=== PATIENT | female | born 1980 | race Caucasian/White ===

== ENCOUNTER 2016-12-28 05:47 | Day surgery (SDC) | payer OTHER ==
[~2016-12-28] VITALS: Ht 167.6 cm; Wt 100.9 kg
[2016-12-28] VITALS (12 sets, daily range): BP systolic 116–144; BP diastolic 64–88; PULSE 75–90; RESP 13–21; O2SAT 94–100
[~2016-12-28 05:47] MED LIST: CYAN500 PO; CYCL10TA9 PO; FERR-83 PO; FLUO20CA25 PO; FOLI1TAB18 PO; HYDR50TA76 PO; LORA2TAB PO; Lactated Ringer's 1,000 ML IV SCH; OMEP20CA11 PO; THIA100T64 PO
[2016-12-28] MEDS ORDERED: Rocuronium 10 mg/mL 5 mL Inj ONE (05:48)
[2016-12-28] MEDS ORDERED: Dexamethasone 4 mg/mL Inj ONE (05:48)
[2016-12-28] MEDS ORDERED: Glycopyrrolate 0.2 MG/ML 1mL Inj ONE (05:48)
[2016-12-28] MEDS ORDERED: Neostigmine 1 mg/mL 10 mL Inj ONE (05:48)
[2016-12-28] MEDS ORDERED: fentaNYL-PF 50 mCg/mL 2 mL Inj ONE (05:48)
[2016-12-28] MEDS ORDERED: Ondansetron 2 mg/mL 2 mL Inj ONE (05:48)
[2016-12-28] MEDS ORDERED: Propofol 10,000 mCg/mL 20 mL Inj ONE (05:48)
[2016-12-28] MEDS: Lactated Ringer's 1,000 ML IV SCH ×2 (06:48→07:27)
--- NOTE | 2016-12-28 07:13 | PCM.HPANE ---
Patient Data Surgeon Admitting Provider: Attending Provider:Donaldo Grady MD Primary Care Physician:Michele Morgan DO Other Provider:Vivi Howeingham Anesthesia Reason for Visit Desires Sterilization Ht/WT & BMI Height (Feet): 5 Height (Inches): 6 Weight (Kilograms): 100.9 Body Mass Index 35.00 Allergies Coded Allergies: No Known Allergies (Unverified , 12/28/16) Past Anesthesia History Anesthesia History: Denies:: Abnormal Airway, Anesthesia Reactions, Difficult Intubation, Fam Anesthesia Reaction, Malignant Hyperthermia Diabetes History Hx Diabetes?: No MRSA MRSA: No Medications Hypertension Medication: No Home Meds Incl Beta Aden: No Reported Medications Cyclobenzaprine 10 Mg [id number] Mg PO TID PRN Spasm 12/25/16 Thiamine Mononitrate (Vitamin B-1)100 Mg [id number] Mg PO DAILY 11/05/16 Omeprazole 20 Mg Capsule.dr20 Mg PO DAILY Ref 0 11/05/16 Lorazepam 2 Mg Tablet2 Mg PO TID PRN For Anxiety Ref 0 11/05/16 Hydroxyzine HCl (HydrOXYzine Hcl)50 Mg Dsezfq20 Mg PO TID PRN For Anxiety Ref 0 11/05/16 Folic Acid 1 Mg Tablet1 Mg PO DAILY 30 Days 11/05/16 Fluoxetine 20 Mg Pupvlxi03 Mg PO DAILY Ref 0 11/05/16 Ferrous Sulfate 325 Mg Prqphx445 Mg PO BID 30 Days Ref 0 11/05/16 Cyanocobalamin (Vitamin B12)500 Mcg Tablet1,000 Mcg PO DAILY 11/05/16 Discontinued Reported Medications [antabuse] No Conflict CheckUnknown Dose PRN For Alcohol Cessation pt states has not taken for a few months 11/05/16 History History of ENT Problems?: Yes HEENT History: Positive for:: Hearing Problem (some hearing loss) Denies:: Abnormal Airway Cataracts Difficult Intubation Dysphagia Glaucoma Sinus Problem TMJ Denture Type: None Teeth Condition: Within Normal Limits Tooth Decay Other HEENT Pertinent History: S/P WISDOM TEETH EXTRACTIONS Hx of Heart Problems?: No Cardiovascular History: Denies:: AICD Abdominal Aortic Aneurism Atrial Fibrillation Heart Murmur Hypertension Irregular Heartbeat Pacemaker Peripheral Vascular Rheumatic Fever Thrombophlebitis Hx of Respiratory Problem?: No Respiratory History: Denies:: Asthma COPD Emphysema Oxygen Administration Pneumonia Tuberculosis Use of C-PAP Machine Use of Inhalers / NEBS Hx Neurologic Problems?: No Neurological History: Denies:: Alzheimer's Disease CVA Dementia Headaches Multiple Sclerosis Parkinson's Disease Seizures TIA Hx of GI Problems?: Yes Hx of Problems?: No Genitourinary History: Denies:: Kidney Stones Urinary Tract Infection Female Hx: Denies:: Currently Problems with Breasts? Skin History: Denies:: History Skin Disorders? Pressure Ulcers Hx Musculoskeletal Problems?: No Musculoskeletal History: Denies:: Back Injury Degenerative Joint Fibromyalgia Joint Replacement Musculoskeletal Trauma Myasthenia Gravis Osteoarthritis Rheumatoid Arthritis Systemic Lupus Hx of Psycho/Social Problems?: Yes Psycho Social History: Positive for:: Anxiety (PTSD,OCD) Hx Depression Hx Surgeries?: Yes (wisdom teeth) Hx Any Other Health Problems?: Yes Other History: Positive for:: Hospitalization (IN SUBSTANCE ABUSE PROGRAM) Denies:: Cancer Endocrine Disease Thyroid Disease History Blood Transfusions: Positive for:: Accept Blood Products? Denies:: Blood Transfusions Hx Diabetes: No Hx Alcohol Use: Yes (HX ABUSE)Alcoholic Drinks Per Day: 8 drinks monthlyHx Substance Use: No Smoking Status: Never Smoker Have You Smoked inLast 12 mo: No Stop/Bang S-Snoring: Do You Snore Loudly: No T-Tired: feel tired, fatigued: No O-Obsered: Observed not breath: No P-Blood Pressure: treated: No B- Body Mass Index > 35 kg/m2: Yes A- Age over 50: No N- Neck Large Circumference: No G- Gender Male: No MILANA Total Score: 1 MILANA Risk Assessment: Low Risk, <3 Yes Risk Assessment Category Category 1A: Patient has history of documented sleep apnea, and HAS NOT received any narcotic, sedative or anesthesia administration during this stay. Category 1B: Patient has history of documented sleep apnea, and HAS received any narcotic , sedative or anesthesia administration during this stay Category 2: Patient has SUSPECTED Obstructive Sleep Apnea, and HAS received any narcotic , sedative or anesthesia administration during this stay. Category 3: Patient has SUSPECTED Obstructive Sleep Apnea and HAS NOT received narcotic, sedative or anesthesia administration during this stay. Category 4: Outpatient in Procedural Areas with known sleep apnea or who screen positive for High Risk via the STOP/BANG questionnaire. Exam Exam Vital Signs Vital Signs Date Time Temp Pulse Resp B/P Pulse Ox O2 Delivery O2 Flow Rate FiO2 12/28/16 06:25 36.5 85 16 119/75 98 Room Air General Appearance: Alert, Oriented X3, Cooperative, No Acute Distress HEENT/AIRWAY: MP 4 Lungs: Clear to Auscultation, Normal Air Movement Heart: Exam Unremarkable, Regular Rate/Rhythm, No Murmurs/Rubs/Gallops Meds/Labs/Diagnostics Admission Meds Current Medications Lactated Ringer's (Lr) 1,000 ml @ 120 mls/hr Q8H20M IV Last administered on t 06:48; Start 12/28/16 at 05:00; Stop 12/28/16 at 13:19 Labs Test 12/28/16 06:50 Plan Impression Patient chart reviewed, patient interviewed and anesthestic plan with risks, benefits, and alternatives discussed, and informed consent obtained. NPO per Anesth. Guidelines: Yes ASA Physical Status: ASA2 Mod Systemic Disease Anesthetic Plan: GA Bene/Risks/Altern/Consents: Yes HP Complete Prior to Induction: Yes Sherwin Osei MD December 28, 2016 07:13
[2016-12-28 07:17] LABS: INR 0.85 ratio
[2016-12-28] MEDS ORDERED: Atropine 0.4 mg/mL Inj IVPUSH PRN (07:45)
[2016-12-28] MEDS ORDERED: EPHEDrine Sulfate 50 mg/mL Inj IVPUSH PRN (07:45)
[2016-12-28] MEDS ORDERED: Dexamethasone 4 mg/mL Inj IVPUSH PRN (07:45)
[2016-12-28] MEDS ORDERED: Phenylephrine 10,000 mCg/mL Inj IVPUSH PRN (07:45)
[2016-12-28] MEDS ORDERED: Ondansetron 2 mg/mL 2 mL Inj IVPUSH PRN ×2 (07:45→10:00)
[2016-12-28] MEDS ORDERED: Labetalol 5 mg/mL 4 mL Inj IV PRN (07:45)
[2016-12-28] MEDS ORDERED: Lactated Ringer's 500 ML IV PRN (07:45)
[2016-12-28] MEDS ORDERED: Lactated Ringer's 1,000 ML IV SCH (07:45)
[2016-12-28] MEDS ORDERED: MetoCLOpramide 5 mg/mL 2 mL Inj IVPUSH PRN ×2 (07:45→10:00)
[2016-12-28] MEDS ORDERED: Bupivacaine-MPF 0.25%/EPI 30 mL Inj INFILTRATE ONE ×2 (07:50→09:06)
[2016-12-28] MEDS ORDERED: Lactated Ringer's 1,000 ML IV ONE (09:26)
[2016-12-28] MEDS: HYDROmorphone 1 mg/mL Inj IVPUSH PRN ×4 (09:52→10:08)
[2016-12-28] MEDS ORDERED: diphenhydrAMINE 25 mg Capsule PO PRN (10:00)
--- NOTE | 2016-12-28 10:00 | PCM.DIMED ---
Discharge Instructions Date of Service December 28, 2016 Dates of Hospitalization Diet Discharge Diet: No restrictions Activity Discharge Activity: No restrictions Call your provider Call your provider for: Fever or Chills, Shortness of breath, Bleeding, Chest pain, Vomitting Patient Instructions Follow-up with PCP in: 2 weeks Donaldo Grady MD December 28, 2016 10:00
[2016-12-28] MEDS: fentaNYL-PF 50 mCg/mL 2 mL Inj IVPUSH PRN ×2 (10:20→10:27)
--- NOTE | 2016-12-28 10:27 | PCM.ANEP1 ---
Post Anesthesia PACU Phase 1 Assessment Vital Signs Vital Signs Date Time Temp Pulse Resp B/P Pulse Ox O2 Delivery O2 Flow Rate FiO2 12/28/16 10:00 79 20 133/82 100 Room Air 12/28/16 09:55 36.6 81 20 133/88 100 Simple Mask 10 12/28/16 09:50 87 18 136/87 100 Simple Mask 10 12/28/16 09:46 36.1 90 14 144/74 100 Simple Mask 10 12/28/16 06:25 36.5 85 16 119/75 98 Room Air Anesthetic Administered: GA Level of Alertness: Awake, talking GALAVIZ's with Equal Strength: Yes Pain: No Nausea or Vomiting: No CV Function & Hydration Stable: Yes Airway Device: Endotrachial Tube Oxygen Delivery: Room Air Lungs: Clear to Auscultation, Normal Air Movement Dermatome Level: Full Sensation PACU Phase 2 Assessment Complications: No Follow up Care: N/A Patient Instructions Provided: Yes Sherwin Osei MD December 28, 2016 10:27
[2016-12-28] MEDS: oxyCODONE-Acetamin 5-325 mg Tablet PO PRN ×2 (11:25→12:25)
--- NOTE | 2016-12-28 13:23 | OP ---
[address] [address] OPERATIVE REPORT PATIENT: DOMITILA SHEA : 1980 MR#: [id number] ADMIT: 12/28/2016 JOB ID: [id number] DATE OF SURGERY: 12/28/2016 PROCEDURES: 1. Diagnostic laparoscopy. 2. Bilateral tubal ligation. PREOPERATIVE DIAGNOSIS(ES): Sterilization. POSTOPERATIVE DIAGNOSIS(ES): 1. Sterilization. 2. Moderate endometriosis. 3. Stage 3 bilateral ovarian cysts. SURGEON: Donaldo Grady M.D. ENGAGEMENT MANAGER: Gavin Viera M.D. Assistance of Dr. Viera was necessary to help with difficulties with initial steps of laparoscopy during the patient's body habitus, help with insufflation and providing proper exposure and manipulation of the tissue and with visualization of anatomic structures. ANESTHESIA: General. ESTIMATED BLOOD LOSS: 10 mL. ESTIMATED URINE OUTPUT: 100 mL. ESTIMATED FLUIDS: 1500 mL of lactated Ringer. COMPLICATIONS: None. FINDINGS: Normal appearance of the perineum. Normal cervix. Normal appearance of the uterus. IUD in place, was removed during the procedure. Bilateral ovarian cysts and adhesions more prominent on the patient's right side between the adnexa and pelvic wall. Moderate endometriosis. Normal appearance of the fallopian tube on the patient's left side. Inflated fallopian tube on the patient's right side with a small hydrosalpinx. PROCEDURE: The patient was brought to the operating room, where she underwent general anesthesia without difficulty. The patient was placed in the dorsal lithotomy position using Eriberto stirrups. She was prepped and draped in the usual surgical fashion. Jonatan Hugger was used to maintain adequate core body temperature. Time out was performed verifying correct patient, correct procedure. After injection of local Marcaine in the paraumbilical area, the Veress needle was introduced. CO2 gas was insufflated and with little insufflation intra-abdominal pressure went high to 15 cc H20 to 50 mmHg correction. The insufflation was stopped. The Veress needle was placed through the palmar point in left upper quadrant. CO2 gas was insufflated and the intra-abdominal pressure was rising faster than expected. Subsequently, after using optic trocar was attempted, the patient was found to have appropriate pneumoperitoneum and the pelvis and abdomen were reviewed with the findings mentioned above. The thickness of the abdominal wall was significant because of obesity. The uterus was elevated in the pelvis using a Hulka manipulator. Both adnexa were visualized and several images were obtained. The patient has moderate endometriosis with bilateral ovarian cysts grossly looking like chocolate cysts. The patient's right fallopian tube was elevated by the fimbria, and then using a LigaSure instrument, a salpingectomy was done and the specimen was removed and sent to Pathology. The same was done on the patient's contralateral side. There was no blood loss. The abdomen was desufflated from the CO2 gas. All the instruments and trocars were removed. The trocar skin incisions were closed using 4-0 Monocryl. Dermabond glue and hemostatic dressing was applied. The Hulka uterine manipulator that was placed at the beginning of the procedure was removed. The patient was repositioned back into the supine position. She tolerated the procedure well and was transferred to the recovery room in stable condition.
--- NOTE | 2017-01-02 14:14 | PATH ---
SURGICAL PATHOLOGY Attending Physician:Donaldo Grady MD CASE STATUS: Signed Out PATIENT NAME: DOMITILA RICARDO PID: [id number] : 1980 DATE COLLECTED:12/28/2016 22:10 SPECIMEN: 1: Fallopian Tube, Sterilization 2: Fallopian Tube, Sterilization CLINICAL HISTORY: STERILIZATION 1). RIGHT FALLOPIAN TUBE 2). LEFT FALLOPIAN TUBE FINAL DIAGNOSIS: 1.RIGHT FALLOPIAN TUBE: SEGMENT OF FALLOPIAN TUBE WITH MILD CHRONIC ACTIVE SALPINGITIS. NO EVIDENCE OF MALIGNANCY. 2.LEFT FALLOPIAN TUBE: SEGMENT OF FALLOPIAN TUBE WITH MILD CHRONIC ACTIVE SALPINGITIS. NO EVIDENCE OF MALIGNANCY. ICD10 Z30.2 GROSS DESCRIPTION: Received are two formalin-filled containers, both labeled with the patient' s name: 1. Received in formalin, labeled with the patient' s name and "right fallopian tube", is one fallopian tube with attached fimbriated end measuring 6.0 x 1.5 x 1.0 cm. Two claims representative sections are submitted in cassette 1A. 2. Received in formalin, labeled with the patient' s name and "left fallopian tube", is one fallopian tube with attached fimbriated end measuring 6.5 x 1.3 x 1.0 cm. Two claims representative sections are submitted in cassette 1B. ([id number]) MICRO DESCRIPTION: See diagnosis. ICD-9 CODES: CPT CODES: 1: 14553 2: 38594 Electronically Signed Out Jayme Saleh MD [facility] Pathology [facility], [place] [address] Technical component performed at [facility], [facility] [address], [place], [address]
== END 2016-12-28 23:59 | disposition home or self-care (01) ==
LOC: SAS 05:47
PROVIDERS: ATTEND Legal Medicine
PROC: 0UB74ZZ Excision of Bilateral Fallopian Tubes, Percutaneous Endoscopic Approach (ICD-10-PCS; principal; 2016-12-28 07:30)
DX: Z30.2 Encounter for sterilization (principal); Z30.432 Encounter for removal of intrauterine contraceptive device; N80.9 Endometriosis, unspecified; N83.202 Unspecified ovarian cyst, left side; N83.201 Unspecified ovarian cyst, right side; N70.11 Chronic salpingitis
CPT/HCPCS: 36415; 58301; 58661; 85610; J1100; J1170; J1885; J2250; J2405; J2710; J3010; J7120